=== PATIENT | female | born 1990 | race African-American/Black ===

== ENCOUNTER 2018-07-14 16:14 | Inpatient (IN) ==
[2018-07-14] MEDS ORDERED: SODIUM CHLORIDE 0.9% 500 ML IV STA (17:02)
[2018-07-14] MEDS ORDERED: IBUPROFEN 600 MG TABLET PO STA (17:02)
[2018-07-14 17:44] LABS: Basophils % 0.3 % (0.0-0.8); Eosinophils % 0.3 % (0.00-10.9); Hematocrit 30.9 VOL% (35.7-47.0); Hemoglobin 9.8 GM/DL (12.0-16.0); Immature Granulocytes % 0.3 %; Immature Granulocytes Absolute 0.04 #; Lymphocytes # 3.3 10*3/uL (1.4-4.0); Mean Corpuscular HGB Conc 31.7 GM/DL (32-36); Mean Corpuscular Hemoglobin 25 PG (27-34); Mean Corpuscular Volume 78.2 FL (87-102); Mean Platelet Volume 10.6 FL (9.6-12.0); Monocytes # 0.8 10*3/uL (0.11-0.8); Neutrophils # 7.6 10*3/uL (1.4-7.4); Neutrophils % 64.1 % (38.7-73.9); Platelet Count 271 T/CUMM (130-400); Red Blood Count 3.95 MC/CUMM (3.8-5.5); Red Cell Distribution Width 15.4 % (9.3-17.3); White Blood Count 11.8 T/CUMM (4-12)
[2018-07-14 17:46] LABS: Apearance,Urine Slightly Hazy (Clear); Bilirubin,Urine Negative (Negative); Blood, Urine Small mg/dL (Negative); Glucose,Urine (UA) Negative (Negative); Ketones,Urine Negative (Negative); Mucus,Urine Few /LPF (Occasional); Nitrite,Urine Negative (Negative); Protein,Urine 30 MG/DL; RBC,Urine 22 /HPF (0-4); Squamous Epithelial Cell,Urine Occasional /HPF (0-10); Urine Color Yellow (Yellow); Urine Specific Gravity 1.027 (1.001-1.035); WBC,Urine 37 /HPF (0-6)
[2018-07-14 17:53] LABS: INR 1.1; PT Patient Result 11.3 SECS
[2018-07-14] MEDS ORDERED: cefTRIAXone 1,000 MG in SODIUM CHLORIDE 0.9% 100 ML IV STA (17:54)
[2018-07-14 18:03] LABS: Alanine Aminotransferase 11 U/L (13-56); Albumin 3.5 G/DL (3.4-5.0); Alkaline Phosphatase 52 U/L (45-117); Amylase 68 U/L (25-115); Aspartate Amino Transferase 6 U/L (0-37); Blood Urea Nitrogen 10 MG/DL (7-18); Calcium 8.2 MG/DL (8.5-10.1); Glucose 107 MG/DL (74-106); Osmolality,Calculated 281.1 MOS/KG (273-304); Potassium 2.8 MMOL/L (3.5-5.1); Sodium 142 MMOL/L (136-145); Total Protein 7.1 G/DL (6.4-8.3)
[2018-07-14 18:06] LABS: Lactic Acid 1.5 MMOL/L (0.4-2.0)
[2018-07-14] MEDS ORDERED: ONDANSETRON 4 MG/2 ML VIAL IV STA (18:31)
[2018-07-14] MEDS ORDERED: POTASSIUM CHLORIDE 20 MEQ TABLET PO STA (18:35)
[2018-07-14] MEDS ORDERED: MAGNESIUM SULF RIDER 2 GM in PREMIX 1 EACH IV ONE (19:05)
[2018-07-14] MEDS ORDERED: ACETAMINOPHEN 325 MG TABLET PO PRN (19:07)
[2018-07-14] MEDS ORDERED: ALBUTEROL 0.63 MG/3 ML NEB RESP TX PRN (19:08)
[2018-07-14 19:24] LABS: Sedimentation Rate-Westergren 24 MM/HR (0-20)
[2018-07-14] MEDS: ONDANSETRON 4 MG/2 ML VIAL IV PRN (20:47)
[2018-07-14] MEDS: MORPHINE 4 MG/1 ML VIAL IV PRN (20:48)
[2018-07-14] MEDS: ENOXAPARIN 40 MG/0.4 ML SYRINGE SUBCUT SCH (20:49)
[2018-07-14] MEDS: DEXT 5% NACL 0.45% KCL 40 MEQ 40 MEQ/1,000 ML BAG IV SCH (20:49)
[2018-07-14] MEDS: tiZANidine 4 MG TABLET PO SCH (20:56)
[2018-07-14] MEDS ORDERED: MAGNESIUM SULF RIDER 1 GM in PREMIX 1 EACH IV ONE (21:00)
[2018-07-14] MEDS: POTASSIUM CHLORIDE 20 MEQ/15 ML UDCUP PO SCH (22:15)
[2018-07-15] MEDS: ONDANSETRON 4 MG/2 ML VIAL IV PRN ×4 (00:55→23:13)
[2018-07-15] MEDS: MORPHINE 4 MG/1 ML VIAL IV PRN ×4 (00:55→23:13)
[2018-07-15] MEDS: POTASSIUM CHLORIDE 20 MEQ/15 ML UDCUP PO SCH (02:55)
[2018-07-15] MEDS: tiZANidine 4 MG TABLET PO SCH ×4 (02:55→21:18)
[2018-07-15 03:30] LABS: Basophils # 0.1 10*3/uL (0.0-0.2); Basophils % 0.6 % (0.0-0.8); Eosinophils # 0.1 10*3/uL (0.0-0.87); Eosinophils % 0.6 % (0.00-10.9); Hematocrit 29.8 VOL% (35.7-47.0); Hemoglobin 9.4 GM/DL (12.0-16.0); Immature Granulocytes % 0.2 %; Immature Granulocytes Absolute 0.02 #; Lymphocytes # 5.3 10*3/uL (1.4-4.0); Lymphocytes % 48.1 % (21.3-54.2); Mean Corpuscular HGB Conc 31.5 GM/DL (32-36); Mean Corpuscular Hemoglobin 25 PG (27-34); Mean Corpuscular Volume 77.6 FL (87-102); Mean Platelet Volume 10.7 FL (9.6-12.0); Monocytes # 0.8 10*3/uL (0.11-0.8); Neutrophils # 4.8 10*3/uL (1.4-7.4); Neutrophils % 43.5 % (38.7-73.9); Platelet Count 250 T/CUMM (130-400); Red Blood Count 3.84 MC/CUMM (3.8-5.5); Red Cell Distribution Width 15.5 % (9.3-17.3); White Blood Count 11.1 T/CUMM (4-12)
[2018-07-15 03:41] LABS: Calcium 7.9 MG/DL (8.5-10.1); Potassium 3.6 MMOL/L (3.5-5.1)
[2018-07-15] MEDS: DEXT 5% NACL 0.45% KCL 40 MEQ 40 MEQ/1,000 ML BAG IV SCH ×3 (05:25→21:19)
[2018-07-15] MEDS: predniSONE 20 MG TABLET PO SCH (09:33)
[2018-07-15] MEDS: PIPERACILLIN/TAZOBACTAM 3,375 MG in SODIUM CHLORIDE 0.9% 100 ML IV SCH ×2 (11:44→18:40)
[2018-07-15] MEDS ORDERED: cefTRIAXone 1,000 MG in SYRINGE 1 EACH IV SCH (18:00)
[2018-07-15] MEDS: ENOXAPARIN 40 MG/0.4 ML SYRINGE SUBCUT SCH (21:18)
[2018-07-16] MEDS: tiZANidine 4 MG TABLET PO SCH ×4 (03:58→21:07)
[2018-07-16] MEDS: PIPERACILLIN/TAZOBACTAM 3,375 MG in SODIUM CHLORIDE 0.9% 100 ML IV SCH ×3 (03:58→17:42)
[2018-07-16] MEDS: DEXT 5% NACL 0.45% KCL 40 MEQ 40 MEQ/1,000 ML BAG IV SCH (03:59)
[2018-07-16] MEDS: predniSONE 20 MG TABLET PO SCH (08:17)
[2018-07-16] MEDS: MORPHINE 4 MG/1 ML VIAL IV PRN ×3 (08:18→23:42)
[2018-07-16] MEDS: ONDANSETRON 4 MG/2 ML VIAL IV PRN ×2 (08:26→17:49)
[2018-07-16] MEDS: ENOXAPARIN 40 MG/0.4 ML SYRINGE SUBCUT SCH (21:07)
[2018-07-17] MEDS: PIPERACILLIN/TAZOBACTAM 3,375 MG in SODIUM CHLORIDE 0.9% 100 ML IV SCH ×2 (02:36→10:35)
[2018-07-17] MEDS: tiZANidine 4 MG TABLET PO SCH ×4 (02:36→20:02)
[2018-07-17] MEDS: MORPHINE 4 MG/1 ML VIAL IV PRN (04:20)
[2018-07-17] MEDS: ONDANSETRON 4 MG/2 ML VIAL IV PRN ×2 (04:20→17:43)
[2018-07-17 05:21] LABS: Basophils % 0.3 % (0.0-0.8); Eosinophils # 0.1 10*3/uL (0.0-0.87); Eosinophils % 0.9 % (0.00-10.9); Hematocrit 31.9 VOL% (35.7-47.0); Hemoglobin 10.1 GM/DL (12.0-16.0); Immature Granulocytes % 0.5 %; Immature Granulocytes Absolute 0.06 #; Lymphocytes # 4.7 10*3/uL (1.4-4.0); Lymphocytes % 36.6 % (21.3-54.2); Mean Corpuscular HGB Conc 31.7 GM/DL (32-36); Mean Corpuscular Hemoglobin 24 PG (27-34); Mean Corpuscular Volume 76.9 FL (87-102); Mean Platelet Volume 10.9 FL (9.6-12.0); Monocytes # 0.8 10*3/uL (0.11-0.8); Monocytes % 5.9 % (1.7-12.7); Neutrophils # 7.2 10*3/uL (1.4-7.4); Neutrophils % 55.8 % (38.7-73.9); Platelet Count 268 T/CUMM (130-400); Red Blood Count 4.15 MC/CUMM (3.8-5.5); Red Cell Distribution Width 15.1 % (9.3-17.3); White Blood Count 12.9 T/CUMM (4-12)
[2018-07-17 05:51] LABS: Calcium 8.5 MG/DL (8.5-10.1); Osmolality,Calculated 276.4 MOS/KG (273-304); Potassium 4.1 MMOL/L (3.5-5.1)
[2018-07-17] MEDS ORDERED: DOXYCYCLINE HYCLATE INJ 100 MG in SODIUM CHLORIDE 0.9% 100 ML IV SCH (09:00)
[2018-07-17] MEDS: LISINOPRIL 10 MG TABLET PO SCH (09:17)
[2018-07-17] MEDS: PROPRANOLOL 20 MG TABLET PO SCH ×2 (09:17→20:01)
[2018-07-17] MEDS: cefTRIAXone 2,000 MG in SYRINGE 1 EACH IV SCH (16:58)
[2018-07-17] MEDS: ENOXAPARIN 40 MG/0.4 ML SYRINGE SUBCUT SCH (20:01)
[2018-07-18] MEDS: tiZANidine 4 MG TABLET PO SCH ×3 (04:01→15:00)
[2018-07-18 04:08] LABS: Basophils # 0.1 10*3/uL (0.0-0.2); Basophils % 0.7 % (0.0-0.8); Eosinophils # 0.2 10*3/uL (0.0-0.87); Eosinophils % 2.3 % (0.00-10.9); Hematocrit 30.5 VOL% (35.7-47.0); Hemoglobin 9.5 GM/DL (12.0-16.0); Immature Granulocytes % 0.3 %; Immature Granulocytes Absolute 0.03 #; Lymphocytes # 5.7 10*3/uL (1.4-4.0); Lymphocytes % 58.8 % (21.3-54.2); Mean Corpuscular HGB Conc 31.1 GM/DL (32-36); Mean Corpuscular Hemoglobin 24 PG (27-34); Mean Corpuscular Volume 78.4 FL (87-102); Mean Platelet Volume 11.4 FL (9.6-12.0); Monocytes # 0.4 10*3/uL (0.11-0.8); Monocytes % 4.3 % (1.7-12.7); Neutrophils # 3.3 10*3/uL (1.4-7.4); Neutrophils % 33.6 % (38.7-73.9); Platelet Count 242 T/CUMM (130-400); Red Blood Count 3.89 MC/CUMM (3.8-5.5); Red Cell Distribution Width 15.4 % (9.3-17.3); White Blood Count 9.8 T/CUMM (4-12)
[2018-07-18 04:27] LABS: Albumin 2.9 G/DL (3.4-5.0); Bilirubin,Total 0.6 MG/DL (0.2-1.0); Calcium 8.1 MG/DL (8.5-10.1); Osmolality,Calculated 273.5 MOS/KG (273-304); Total Protein 5.9 G/DL (6.4-8.3)
[2018-07-18 04:52] LABS: Eosinophils 1 % (0-10); Hypochromasia 1+; Lymphocytes 59 % (20-55); Ovalocytes Slight; Platelet Estimate Adequate; Segmented Neutrophils 37 % (50-85); Total Cells Counted 100
[2018-07-18 04:53] LABS: Atypical Lymphocytes Few
[2018-07-18] MEDS: PROPRANOLOL 20 MG TABLET PO SCH (10:20)
[2018-07-18] MEDS: LISINOPRIL 10 MG TABLET PO SCH (10:20)
[2018-07-18] MEDS ORDERED: SODIUM CHLORIDE 0.9% 1,000 ML IV ONE (11:26)
[2018-07-18] MEDS: cefTRIAXone 2,000 MG in SYRINGE 1 EACH IV SCH (16:00)
[2018-07-18 20:47] VITALS: BP 111/83
== END 2018-07-18 17:50 | disposition home or self-care (01) | DRG 872 ==
LOC: N.EDINP 16:14 → N.ED 16:14 → SUATTDRO 18:52 → N.3E 19:47
PROVIDERS: ADMIT Internal Medicine; ATTEND Internal Medicine